=== PATIENT | male | born 1970 | race Caucasian/White ===

== ENCOUNTER 2017-08-08 02:15 | Emergency (ER) | payer MEDICARE, MEDICAID ==
--- NOTE | 2017-08-08 03:03 | EDM.PDOC ---
ED HPI GENERAL MEDICAL PROBLEM - General Chief Complaint: Fever Stated Complaint: FEVER/CONGESTION Time Seen by Provider: 08/08/17 02:18 Source of Information: Reports: Patient, Family History Limitations: Reports: No Limitations - History of Present Illness INITIAL COMMENTS - FREE TEXT/NARRATIVE: This is a 47-year-old male. He was noted to have an upper respiratory type symptoms and then he started developing a fever today up to 102. He's been coughing since last and that seems to be getting worse as well. Due to his worsening symptoms and his fever today up to 102 with a bring him to the ER for evaluation. The patient states his stomach is a little upset but he's had no nausea or vomiting though he is gagged several times. He's had no diarrhea. The cough at times is productive but it's mostly dry. He also states he has a mild sore throat at times. - Related Data Allergies Allergy/AdvReac Type Severity Reaction Status Date / Time No Known Allergies Allergy Verified 08/08/17 02:33 Past Medical History Psychiatric History: Reports: Schizophrenia - Past Surgical History GI Surgical History: Reports: Appendectomy Social & Family History - Family History Family Medical History: Noncontributory - Tobacco Use Smoking Status *Q: Unknown Ever Smoked Years of Tobacco use: 33 Packs/Tins Daily: 1 - Caffeine Use Caffeine Use: Reports: Coffee, Soda - Recreational Drug Use Recreational Drug Use: No ED ROS GENERAL - Review of Systems Review Of Systems: See Below Constitutional: Reports: Fever, Chills HEENT: Reports: Rhinitis, Throat Pain, Throat Swelling Respiratory: Reports: Cough, Sputum. Denies: Shortness of Breath, Wheezing Cardiovascular: Reports: No Symptoms Endocrine: Reports: No Symptoms GI/Abdominal: Reports: Abdominal Pain, Other (Gags at times). Denies: Diarrhea , Nausea, Vomiting : Reports: No Symptoms Musculoskeletal: Reports: No Symptoms Skin: Reports: No Symptoms Neurological: Reports: No Symptoms Psychiatric: Reports: No Symptoms Hematologic/Lymphatic: Reports: No Symptoms ED EXAM, GENERAL - Physical Exam Exam: See Below Exam Limited By: No Limitations General Appearance: Alert, WD/WN, No Apparent Distress Eye Exam: Bilateral Eye: Normal Inspection Ears: Normal External Exam, Normal Canal, Normal TMs Nose: Clear Rhinorrhea. No: Nasal Flaring Throat/Mouth: Other (Tonsils are inflamed and slightly swollen) Head: Normocephalic Neck: Supple Respiratory/Chest: No Respiratory Distress, Lungs Clear, Normal Breath Sounds Cardiovascular: Regular Rate, Rhythm, No Murmur GI/Abdominal: Soft, Non-Tender Back Exam: Full Range of Motion Extremities: Normal Inspection, Normal Range of Motion Neurological: Alert Psychiatric: Flat Affect Skin Exam: Warm, Dry Course - Vital Signs Last Recorded V/S: Last Vital Signs Temp 100 F 08/08/17 02:26 Pulse 142 H 08/08/17 02:26 Resp 18 08/08/17 02:26 BP 135/89 08/08/17 02:26 Pulse Ox 94 L 08/08/17 02:26 - Orders/Labs/Meds Orders: Active Orders 24 hr Category Date Time Status Chest 2V [CR] Stat Exams 08/08/17 02:40 Taken CULTURE STREP A CONFIRMATION [RM] Stat Lab 08/08/17 02:49 Results Rapid Strep w/culture conf [STREP SCRN A RAPID W CULT Lab 08/08/17 02:49 Results CONF] [RM] Stat Labs: Laboratory Tests 08/08/17 Range/Units 03:18 WBC 9.20 H (4.23-9.07) K/mm3 RBC 4.49 L (4.63-6.08) M/mm3 Hgb 13.5 L (13.7-17.5) gm/L Hct 41.3 (40.1-51.0) % MCV 92.0 (79.0-92.2) fl MCH 30.1 (25.7-32.2) pg MCHC 32.7 (32.2-35.5) g/dl RDW Std Deviation 44.0 H (35.1-43.9) fL Plt Count 115 L (163-337) K/mm3 MPV 10.7 (9.4-12.3) fl Neut % (Auto) 79.6 H (34.0-67.9) % Lymph % (Auto) 12.8 L (21.8-53.1) % Appling % (Auto) 7.0 (5.3-12.2) % Eos % (Auto) 0.2 L (0.8-7.0) Baso % (Auto) 0.1 (0.1-1.2) % Neut # (Auto) 7.32 H (1.78-5.38) K/mm3 Lymph # (Auto) 1.18 L (1.32-3.57) K/mm3 Appling # (Auto) 0.64 (0.30-0.82) K/mm3 Eos # (Auto) 0.02 L (0.04-0.54) K/mm3 Baso # (Auto) 0.01 (0.01-0.08) K/mm3 - Re-Assessments/Exams Free Text/Narrative Re-Assessment/Exam: 08/08/17 03:51 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 I meticulously went through instructions with the motorcycle fabricator to drink lots of fluids treat the fever faithfully and that he has to follow-up with his family doctor this week for recheck as he can get worse. Departure - Departure Time of Disposition: 03:57 Disposition: Home, Self-Care 01 Condition: Fair Clinical Impression: Influenza A - Discharge Information Instructions: Influenza, Adult, [id number] Referrals: Jeannie Hawkins [employer]ET[employer] PROGRAM MANAGER [Primary Care Provider] - Forms: ED Department Discharge Additional Instructions: He needs to rest and sleep as much as possible, no strenuous activity, wear the mask so you don't infect other people with influenza a, drink lots of fluids and stay well-hydrated, give him [id number] medicine to help with the congestion and his cough, follow-up with his family physician this week but be certain when he goes to the office to wear a mask so he doesn't spread influenza a, return to the ER if needed - My Orders Last 24 Hours: My Active Orders 08/08/17 02:40 Chest 2V [CR] Stat 08/08/17 02:49 CULTURE STREP A CONFIRMATION [RM] Stat Rapid Strep w/culture conf [STREP SCRN A RAPID W CULT CONF] [] Stat - Assessment/Plan Last 24 Hours: My Active Orders 08/08/17 02:40 Chest 2V [CR] Stat 08/08/17 02:49 CULTURE STREP A CONFIRMATION [RM] Stat Rapid Strep w/culture conf [STREP SCRN A RAPID W CULT CONF] [] Stat
--- NOTE | 2017-08-08 12:13 | CR ---
Chest: Two views of the chest were obtained. Comparison: No prior chest x-ray. Heart size and mediastinum are normal. Lungs are clear. Bony structures are grossly intact. Impression: 1. Nothing acute is identified on two-view chest x-ray. Diagnostic code #1
== END 2017-08-08 04:20 | disposition home or self-care (01) ==
LOC: JD.ED 02:15
DX: J11.1 Influenza due to unidentified influenza virus with other respiratory manifestations (principal)
CPT/HCPCS: 36415; 71046; 71046-26; 85025; 87081; 87430; 87804; 99282; 99284

== ENCOUNTER 2017-11-06 17:50 | Emergency (ER) | payer MEDICARE, MEDICAID ==
[2017-11-06] MEDS ORDERED: Amoxicillin/Clavulanate K 875-125 MG Tab PO ONE (18:33)
[2017-11-06] MEDS ORDERED: Bupivacaine 0.5% 10 ML SDV INJECT ONE (18:34)
[2017-11-06] MEDS ORDERED: Lidocaine 1% with EPINEPHrine 1:100,000 20 ML MDV INJECT ONE (18:34)
[2017-11-06] MEDS ORDERED: Diphtheria,Pertussis(Acell),Tetanus Vaccine 0.5 ML SDV IM ONE (18:34)
--- NOTE | 2017-11-06 18:36 | EDM.PDOC ---
ED HPI GENERAL MEDICAL PROBLEM - General Chief Complaint: Bite:Animal, Insect Stated Complaint: DOG BITE ON LEGS Time Seen by Provider: 11/06/17 18:03 Source of Information: Reports: Patient, Family (Sister + [id number]) History Limitations: Reports: No Limitations - History of Present Illness INITIAL COMMENTS - FREE TEXT/NARRATIVE: The patient states that he was visiting his sister and [id number], when their [place] Newman got out and bit the patient on the distal posterior medial aspect of his right leg around 17:45. He also has some abrasions to his left foot resulting from struggling with a dog, but was bitten only on the right leg. The patient does not recall when his last tetanus vaccination was. The dog's vaccinations are up-to-date. The patient's last oral solid intake was around 17:00, and his last liquid intake around 17:30. The patient's PCP is Dr. Holly. His psychiatrist is Dr. Shin. Right Feet Pain Score (Numeric/FACES): 0 - Related Data Allergies Allergy/AdvReac Type Severity Reaction Status Date / Time No Known Allergies Allergy Verified 08/08/17 02:33 Home Meds: Home Meds Amoxicillin/Potassium Clav [Augmentin 875-125 Tablet] 1 tab PO Q12H #19 tablet 11/06/17 [Rx] Past Medical History Cardiovascular History: Reports: High Cholesterol, Hypertension Gastrointestinal History: Reports: GERD Musculoskeletal History: Reports: Gout Psychiatric History: Reports: Depression, Schizophrenia - Past Surgical History GI Surgical History: Reports: Appendectomy Musculoskeletal Surgical History: 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 ED EXAM, ANIMAL BITE - Physical Exam Exam: See Below Exam Limited By: No Limitations General Appearance: Alert, WD/WN, No Apparent Distress Extremities: Other (There is a large flap laceration to the postero-medial aspect of the right distal leg, just above the ankle, measuring 9 cm across, 5 cm in height, with the flap off the inferior aspect. The wound is deep, exposing tendon, but no obvious tendinous injury. Neurovascular status of the right lower extremity is intact.) ED ANIMAL BITE PROCEDURES - Laceration/Wound Repair Right Leg Lac/Wound Length In cm: 17 Appearance: Subcutaneous, Stellate, Clean Distal NVT: Neuro & Vascular Intact, No Tendon Injury Anesthetic Type: Local Local Anesthesia - Lidocaine (Xylocaine): 1% with EPI (50:50 admixture) Local Anesthesia - Bupivicaine (Marcaine): 0.5% Plain (50:50 admixture) Local Anesthetic Volume: Other (10 ml) Skin Prep: Providone-Iodine (Betadine) Saline Irrigation (cc's): 900 Exploration/Debridement/Repair: Wound Explored, In a Bloodless Field, Explored to Base, No Foreign Material Found, Wound Margins Revised Closed With: Sutures Suture Size: other (0-0) # of Sutures: 29 Suture Type: Silk, Interrupted, Simple Sterile Dressing Applied: Nurse Tetanus Status Addressed: Yes Complications: No Course - Vital Signs Last Recorded V/S: Last Vital Signs Temp 37.3 C 11/06/17 18:21 Pulse 104 H 11/06/17 18:21 Resp 20 11/06/17 18:21 BP 102/75 11/06/17 18:21 Pulse Ox 95 11/06/17 18:21 - Orders/Labs/Meds Orders: Active Orders 24 hr Category Date Time Status Vaccines to be Administered [RC] PER UNIT ROUTINE Care 11/06/17 18:34 Active Meds: Medications Discontinued Medications Generic Name Dose Route Start Last Admin Trade Name Freq PRN Reason Stop Dose Admin Amoxicillin/Clavulanate Potassium 1 tab 11/06/17 18:33 11/06/17 19:06 Augmentin 875 Mg/125 Mg PO 11/06/17 18:34 1 tab ONETIME ONE Administration Bupivacaine HCl 10 ml 11/06/17 18:34 Sensorcaine-Mpf 0.5% INJECT 11/06/17 18:35 ONETIME ONE Diphtheria/Tetanus/Acell Pertussis 0.5 ml 11/06/17 18:34 11/06/17 19:07 Adacel IM 11/06/17 18:35 0.5 ml .ONCE ONE Administration Lidocaine/Epinephrine 20 ml 11/06/17 18:34 Xylocaine 1% With Epinephrine 1:100,000 INJECT 11/06/17 18:35 ONETIME ONE - Re-Assessments/Exams Free Text/Narrative Re-Assessment/Exam: 11/06/17 18:[address] Gramajo at 18:29. He recommends copious irrigation with a couple of liters of IV fluid, then simple closure with sutures, however, he would like me to call if I find any tendinous injury. Antibiotics will be necessary. 11/06/17 20:32 Sterile field made with Betadine and sterile drapes. Local anesthesia with 10 mL 50:50 admixture of lidocaine 1% with epinephrine and bupivacaine 0.5%, no epinephrine, with good anesthesia. 29 simple interrupted sutures using 0-0 silk placed. The patient tolerated procedure well. Sterile dressing applied per the RN. The patient received his first dose of Augmentin here in the ED, as well as a tetanus vaccination. I will discharge him home with a 10-day prescription for Augmentin 875 BID. Ibuprofen should be adequate for pain relief and will avoid unintended side effects in this already, gated patient. I would like him to keep the wound clean with ordinary soap and water, and apply a clean dressing at least daily. I would like him to follow-up with his PCP, Dr. Holly, this coming week. The sutures should be ready for removal on or about Thursday, November 162017. Departure - Departure Time of Disposition: 20:36 Disposition: Home, Self-Care 01 Condition: Fair Clinical Impression: Dog bite of right lower leg, Laceration of lower leg, right - Discharge Information Referrals: Riley Holly MD [Primary Care Provider] - Forms: ED Department Discharge Additional Instructions: You were seen in the emergency room after suffering a dog bite and laceration to your lower right leg. Your wound was closed with 29 sutures. Keep the wound clean with ordinary soap and water. Apply a thin smear of bacitracin ointment to the wound, then a clean dressing, at least daily. Elevate your right leg is much as possible over the next 2 days, to help minimize swelling. Take [id number] ibuprofen, 2-3 tablets (400-600 mg) every 8 hours, as needed for discomfort. You have been started on the antibiotic Augmentin. A prescription for this has been sent to the [facility] located in the [place] store. Take one tablet every 12 hours, starting tomorrow morning, 11/07/2017, as prescribed. Finish the entire prescription unless told otherwise by Dr. Holly. Follow-up with your PCP, Dr. Holly, this coming week. The sutures should be ready for removal by Thursday, November 16, 2017, but Dr. Holly will determine the exact date based on how well you are healing. If any other problems, please do not hesitate to return to the ER. - My Orders Last 24 Hours: My Active Orders 11/06/17 18:34 Vaccines to be Administered [RC] PER UNIT ROUTINE - Assessment/Plan Last 24 Hours: My Active Orders 11/06/17 18:34 Vaccines to be Administered [RC] PER UNIT ROUTINE
== END 2017-11-06 20:55 | disposition home or self-care (01) ==
LOC: JD.ED 17:50
DX: S81.851A Open bite, right lower leg, initial encounter (principal); I10 Essential (primary) hypertension; F17.210 Nicotine dependence, cigarettes, uncomplicated; W54.0XXA Bitten by dog, initial encounter
CPT/HCPCS: 12005; 90471; 90715; 99283; A9270

== ENCOUNTER 2017-11-20 18:06 | Emergency (ER) | payer MEDICARE, MEDICAID ==
[2017-11-20] MEDS ORDERED: Silver Sulfadiazine 1% Crm 400 GM Jar TOP ONE (19:30)
--- NOTE | 2017-11-20 19:45 | EDM.PDOC ---
ED HPI GENERAL MEDICAL PROBLEM - General Chief Complaint: Lower Extremity Injury/Pain Stated Complaint: INFECTION RIGHT LEG Time Seen by Provider: 11/20/17 18:25 Source of Information: Reports: Patient, Other ([facility] staff member) History Limitations: Reports: No Limitations - History of Present Illness INITIAL COMMENTS - FREE TEXT/NARRATIVE: Jeremy is a 47yo male, pleasant, presents ambulatory to ED tonight with [facility] staff member where he resides with complaints of rash and redness to right ankle. He suffered a dog bite 2.5 wks ago, was sutured. Sutures were removed one week ago. He and staff members have been keeping wound covered and using and terry wrap when he is up and moving about. There is now circumfrential erythema with sloughing of skin, wound edges are intact but pulling. There is dark scab to posterior ankle. He denies f/c/s, n/v/d. Pain is minimal to none, states it really itches. He does smoke cigarettes, has cut back. Onset: Gradual Duration: Day(s): (7-10) Location: Reports: Lower Extremity, Right Improves with: Reports: None Worsens with: Reports: None Context: Reports: Trauma (dog bite 2.5 wks ago. Wound was sutured, sutures removed one week ago. Skin has now become red, irritated and inflammed with dark brown eschar noted to back of ankle to wound edge. ) Associated Symptoms: Reports: No Other Symptoms. Denies: Fever/Chills - Related Data Allergies Allergy/AdvReac Type Severity Reaction Status Date / Time No Known Allergies Allergy Verified 11/20/17 18:17 Home Meds: Home Meds . [Unable to Verify Home Med List] 11/20/17 [History] Past Medical History Cardiovascular History: Reports: High Cholesterol, Hypertension Respiratory History: Reports: Pneumonia, Recurrent Gastrointestinal History: Reports: GERD Musculoskeletal History: Reports: Gout Psychiatric History: Reports: Depression, Schizophrenia - Past Surgical History GI Surgical History: Reports: Appendectomy Musculoskeletal Surgical History: Reports: Amputation Social & Family History - Family History Family Medical History: Noncontributory - Tobacco Use Smoking Status *Q: Current Every Day Smoker Years of Tobacco use: 35 Packs/Tins Daily: 0.5 - Caffeine Use Caffeine Use: Reports: Coffee, Soda - Recreational Drug Use Recreational Drug Use: No - Living Situation & Occupation Living situation: Reports: Single, Other ([facility]) Occupation: Disabled Review of Systems - Review of Systems Review Of Systems: See Below Constitutional: Reports: No Symptoms. Denies: Chills, Fever Eyes: Reports: No Symptoms Ears: Reports: No Symptoms Respiratory: Reports: No Symptoms Cardiovascular: Reports: No Symptoms GI/Abdominal: Reports: No Symptoms Skin: Reports: Other (see HPI) Neurological: Reports: No Symptoms ED EXAM, GENERAL - Physical Exam Exam: See Below Exam Limited By: No Limitations General Appearance: Alert, WD/WN, No Apparent Distress Eye Exam: Bilateral Eye: EOMI, PERRL Throat/Mouth: Normal Inspection, Normal Voice, No Airway Compromise Head: Atraumatic, Normocephalic Neck: Normal Inspection Respiratory/Chest: No Respiratory Distress, Lungs Clear, Normal Breath Sounds Cardiovascular: Regular Rate, Rhythm Extremities: Other (Left lower leg/ankle with dog ear laceration that was repaired/sutured, wound edges are not well approximated and rolling, surrounding skin is sloughing off, suggestive of contact dermatitis type picture. There is a 3x3cm area of eschar to posterior ankle at end of wound edge. Wound is approximately 3x4cm in an L shape. No drainage noted at time of my exam. ) Neurological: Alert, Oriented Psychiatric: Normal Affect, Normal Mood Course - Vital Signs Last Recorded V/S: Last Vital Signs Temp 98.4 F 11/20/17 18:18 Pulse 97 11/20/17 18:18 Resp BP 135/93 H 11/20/17 18:18 Pulse Ox 98 11/20/17 18:18 - Orders/Labs/Meds Meds: Medications Discontinued Medications Generic Name Dose Route Start Last Admin Trade Name Noel PRN Reason Stop Dose Admin Silver Sulfadiazine 1 gm 11/20/17 19:30 11/20/17 19:36 Silvadene 1% Cream 400 Gm TOP 11/20/17 19:31 1 gm ONETIME ONE Administration - Re-Assessments/Exams Free Text/Narrative Re-Assessment/Exam: 11/20/17 19:42 Wound was cleansed by nursing, attempts to mechanically debride wound with gauze pad was unsuccessful to posterior ankle area of eschar. Wound was dressed with silvadene and dry gauze wrap. This will be continued BID at [facility] per staff. Rx for silvadene given to cont with dressings BID until seen by PT. Order given for PT for wound care to set this up Wednesday morning. No antibiotics needed at this time, pending PT treatment. I believe this is more of a contact dermatitis from terry wrap usage. Do not feel this is acutely infected. Departure - Departure Time of Disposition: 19:45 Disposition: Home, Self-Care 01 Condition: Good Clinical Impression: Dog bite of right lower leg Qualifiers: Encounter type: sequela Qualified Code(s): S81.851S - Open bite, right lower leg, sequela Contact dermatitis and eczema due to cause Qualifiers: Contact dermatitis type: irritant Contact dermatitis trigger: other trigger Qualified Code(s): L24.89 - Irritant contact dermatitis due to other agents - Discharge Information Instructions: Animal Bite, [id number] Referrals: PCP,None [Primary Care Provider] - Forms: ED Department Discharge Additional Instructions: Physical Therapy prescription given: to evaluate and treat, wound care. Continue with silvadene dressing changes; thin layer of silvadene to all affected areas, then use loose gauze wrap. Avoid all tape to skin. No elastic or TERRY wrap to leg. Elevate right extremity at all times while sitting. Can continue to walk/exercise. Avoid soaking ankle in bath or hot tub. Can shower as usual. Follow up with Primary Care Provider early next week for recheck. Return to ER if develop red streaking, purulent drainage, fevers, chills or sweats.
== END 2017-11-20 19:54 | disposition home or self-care (01) ==
LOC: JD.ED 18:06
DX: L24.89 Irritant contact dermatitis due to other agents (principal); S81.851S Open bite, right lower leg, sequela; E78.00 Pure hypercholesterolemia, unspecified; I10 Essential (primary) hypertension; F17.210 Nicotine dependence, cigarettes, uncomplicated; W54.0XXS Bitten by dog, sequela
CPT/HCPCS: 97597; 99283; A9270

== ENCOUNTER 2021-02-21 21:30 | Emergency (ER) | payer MEDICARE, MEDICAID ==
[2021-02-21] MEDS ORDERED: Acetaminophen 325 MG Tab PO ONE (22:08)
--- NOTE | 2021-02-21 22:09 | EDM.PDOC ---
ED HPI GENERAL MEDICAL PROBLEM - General Chief Complaint: Lower Extremity Injury/Pain Stated Complaint: LEFT KNEE PAIN Time Seen by Provider: 02/21/21 21:41 Source of Information: Reports: Patient, RN Notes Reviewed History Limitations: Reports: No Limitations - History of Present Illness INITIAL COMMENTS - FREE TEXT/NARRATIVE: Patient is a 50-year-old male presenting to the emergency department with complaints of an episode of left knee pain. He reports that this evening, he feels that he might have turned his left knee wrong and he was experiencing pain to the lateral aspect of the knee. He called the ambulance, however police arrived before the ambulance and gave him a ride to the ER. He denies any recent falls. He states that he has had problems with knee pain in the past and gone to physical therapy. Pain has resolved at this time. He is able to get up and walk around without discomfort. He has not taken anything at home for pain. Treatments STOCK DIGGER: Reports: Other (see below) Other Treatments STOCK DIGGER: none Left Knee Pain Score (Numeric/FACES): 8 - Related Data Allergies Allergy/AdvReac Type Severity Reaction Status Date / Time No Known Allergies Allergy Verified 11/20/17 18:17 Home Meds: Home Meds Metoprolol Succinate 50 mg PO DAILY 02/21/21 [History] Sennosides/Docusate Sodium [Senna Plus 8.6-50 mg Tablet] 2 tab PO BEDTIME 02/21/21 [History] atorvaSTATin Calcium [Lipitor] 20 mg PO BEDTIME 02/21/21 [History] cloZAPine [Clozapine] 200 mg PO QID 02/21/21 [History] lamoTRIgine [Lamotrigine] 100 mg PO BEDTIME 02/21/21 [History] Past Medical History Cardiovascular History: Reports: High Cholesterol, Hypertension Respiratory History: Reports: Pneumonia, Recurrent Gastrointestinal History: Reports: GERD Musculoskeletal History: Reports: Gout Psychiatric History: Reports: Depression, Schizophrenia - Past Surgical History GI Surgical History: Reports: Appendectomy Musculoskeletal Surgical History: Reports: Amputation Social & Family History - Family History Family Medical History: No Pertinent Family History - Tobacco Use Tobacco Use Status *Q: Current Every Day Tobacco User Years of Tobacco use: 36 Packs/Tins Daily: 1 - Caffeine Use Caffeine Use: Reports: Coffee, Soda, Tea - Recreational Drug Use Recreational Drug Use: No - Living Situation & Occupation Living situation: Reports: Single, Other ([facility]) Occupation: Disabled Review of Systems - Review of Systems Review Of Systems: Comprehensive ROS is negative, except as noted in HPI. ED EXAM, GENERAL - Physical Exam Exam: See Below Exam Limited By: No Limitations General Appearance: Alert, WD/WN, No Apparent Distress Respiratory/Chest: No Respiratory Distress, Lungs Clear, Normal Breath Sounds, No Accessory Muscle Use, Chest Non-Tender Cardiovascular: Normal Peripheral Pulses, Regular Rate, Rhythm, No Edema, No Gallop, No JVD, No Murmur, No Rub Extremities: Normal Inspection, Normal Range of Motion, Non-Tender, No Pedal Edema, Normal Capillary Refill, Other (No pain, swelling, redness, or warmth to left knee.) Neurological: Alert, Oriented, CN II-XII Intact, Normal Cognition, Normal Gait, Normal Reflexes, No Motor/Sensory Deficits Psychiatric: Normal Affect, Normal Mood Skin Exam: Warm, Dry, Intact, Normal Color, No Rash Course - Vital Signs Last Recorded V/S: Last Vital Signs Temp 97.9 F 02/21/21 21:47 Pulse 92 02/21/21 21:47 Resp 20 02/21/21 21:47 BP 123/85 02/21/21 21:47 Pulse Ox 97 02/21/21 21:47 - Orders/Labs/Meds Meds: Medications Discontinued Medications Generic Name Dose Route Start Last Admin Trade Name Noel PRN Reason Stop Dose Admin Acetaminophen 650 mg 02/21/21 22:08 02/21/21 22:20 Acetaminophen 325 Mg Tab PO 02/21/21 22:09 650 mg NOW ONE Administration - Re-Assessments/Exams Free Text/Narrative Re-Assessment/Exam: Patient is a 50-year-old male presenting to the emergency department with complaints of an episode of left knee pain at home which has since resolved. States that he turned his knee wrong and had pain to the lateral aspect. Discussed that it is possible that he had a muscle spasm which has since resolved. He has no tenderness to palpation. He is able to get up and walk without discomfort. I will give him a dose of Tylenol and he will be discharged home. Discharge instructions as documented. Departure - Departure Time of Disposition: 22:09 Disposition: Home, Self-Care 01 Condition: Good Clinical Impression: Knee pain, left Qualifiers: Chronicity: acute Qualified Code(s): M25.562 - Pain in left knee - Discharge Information *PRESCRIPTION DRUG MONITORING PROGRAM REVIEWED*: No *COPY OF PRESCRIPTION DRUG MONITORING REPORT IN PATIENT ELVA: No Instructions: Acute Knee Pain, Adult Referrals: Riley Holly MD [Primary Care Provider] - Forms: ED Department Discharge Additional Instructions: You were seen in the emergency department today for an episode of left knee pain at home. The pain resolved prior to the time of examination. As we discussed, because your pain may have been a muscle spasm. While in the ER, you received a dose of Tylenol. You may use [id number] Tylenol or ibuprofen as needed for discomfort. If you continue to have problems with intermittent knee pain, recommend follow-up with your primary care provider. Return to ER as needed. Sepsis Event Note (ED) - Evaluation Sepsis Screening Result: No Definite Risk
== END 2021-02-21 22:19 | disposition home or self-care (01) ==
LOC: JD.ED 21:30
DX: M25.562 Pain in left knee (principal); E78.00 Pure hypercholesterolemia, unspecified; I10 Essential (primary) hypertension; Z72.0 Tobacco use; Z79.899 Other long term (current) drug therapy
CPT/HCPCS: 99283; A9270; 99282

== ENCOUNTER 2021-10-25 22:24 | Emergency (ER) | payer MEDICARE, MEDICAID ==
[2021-10-26] MEDS ORDERED: Magnesium Citrate Solution 296 ML Bottle PO ONE (00:37)
== END 2021-10-26 01:00 | disposition home or self-care (01) ==
LOC: JD.ED 22:24
DX: K59.00 Constipation, unspecified (principal); E78.00 Pure hypercholesterolemia, unspecified; I10 Essential (primary) hypertension; M10.9 Gout, unspecified; K21.9 Gastro-esophageal reflux disease without esophagitis; Z79.899 Other long term (current) drug therapy
CPT/HCPCS: 36415; 74018; 74018-26; 74177; 74177-26; 80053; 85025; 99284-25

== ENCOUNTER 2021-11-03 18:26 | Emergency (ER) | payer MEDICARE, MEDICAID ==
[2021-11-03] MEDS ORDERED: Acetaminophen 325 MG Tab PO ONE (19:49)
== END 2021-11-03 20:38 | disposition home or self-care (01) ==
LOC: SUPCPDRO 18:26 → JD.ED 18:26
DX: M25.562 Pain in left knee (principal); E78.00 Pure hypercholesterolemia, unspecified; I10 Essential (primary) hypertension; K21.9 Gastro-esophageal reflux disease without esophagitis; Z79.899 Other long term (current) drug therapy
CPT/HCPCS: 73564; 99283; A9270

== ENCOUNTER 2022-04-03 14:08 | Emergency (ER) | payer MEDICARE, MEDICAID ==
[2022-04-03] MEDS ORDERED: Polyethylene Glycol 3350 Powder 17 GM Packet PO ONE (16:15)
== END 2022-04-03 16:45 | disposition home or self-care (01) ==
LOC: JD.ED 14:08
DX: K59.00 Constipation, unspecified (principal); I10 Essential (primary) hypertension; F17.210 Nicotine dependence, cigarettes, uncomplicated; E78.00 Pure hypercholesterolemia, unspecified; F32.A Depression, unspecified; Z79.899 Other long term (current) drug therapy
CPT/HCPCS: 74018; 99283; A9270

== ENCOUNTER 2022-10-24 16:57 | Emergency (ER) | payer MEDICARE, MEDICAID ==
[2022-10-24] MEDS ORDERED: Polyethylene Glycol 3350 Powder 17 GM Packet PO ONE (17:13)
== END 2022-10-24 17:45 | disposition home or self-care (01) ==
LOC: JD.ED 16:57
DX: K59.03 Drug induced constipation (principal); E78.00 Pure hypercholesterolemia, unspecified; I10 Essential (primary) hypertension; F17.210 Nicotine dependence, cigarettes, uncomplicated
CPT/HCPCS: 99284; A9270; 99283

== ENCOUNTER 2023-02-27 20:01 | Emergency (ER) | payer MEDICARE, MEDICAID ==
[2023-02-27 21:45] LABS: APPEARANCE,URINE CLEAR (Clear); BILIRUBIN,URINE NEGATIVE (Negative); COLOR,URINE LIGHT YELLOW (Yellow); GLUCOSE,URINE NEGATIVE (Negative); KETONES,URINE NEGATIVE (Negative); LEUKOCYTE ESTERASE,URINE NEGATIVE (Negative); NITRITE,URINE NEGATIVE (Negative); OCCULT BLOOD,URINE NEGATIVE (Negative); PROTEIN,URINE NEGATIVE (Negative); UROBILINOGEN,URINE 0.2 (0.2-1.0)
== END 2023-02-27 22:00 | disposition home or self-care (01) ==
LOC: JD.ED 20:01
DX: R10.30 Lower abdominal pain, unspecified (principal); I10 Essential (primary) hypertension; E78.00 Pure hypercholesterolemia, unspecified; K21.9 Gastro-esophageal reflux disease without esophagitis; Z79.899 Other long term (current) drug therapy
CPT/HCPCS: 81003; 99283